=== PATIENT | female | born 1990 | race Caucasian/White ===

== ENCOUNTER → 2021-07-04 13:58 | Outpatient (CLI) | payer OTHER, SELFPAY ==
[2021-07-04 16:01] LABS: Urine N gonorrhoeae NOT DETECTED
[2021-07-04 16:42] LABS: Urine Chlamydia NOT DETECTED
== END ==
PROVIDERS: Visit Provider Obstetrics & Gynecology
DX: Z34.01 Encounter for supervision of normal first pregnancy, first trimester (principal)
CPT/HCPCS: 87491; 87591

== ENCOUNTER → 2021-07-15 12:19 | Outpatient (CLI) | payer OTHER, SELFPAY ==
[2021-07-15 13:21] LABS: Add Manual Diff / Slide Review NO; Basophils Absolute Auto 0 /uL (0-100); Basophils Percent Auto 0.4 % (0-2); Eosinophils Absolute Auto 100 /uL (0-450); Eosinophils Percent Auto 1.1 % (2-4); Hematocrit 35.3 % (36-46); Hemoglobin 12.5 g/dL (12.0-16.0); Lymphocytes Absolute Auto 2400 /uL (1100-4500); Lymphocytes Percent Auto 27.2 % (25-40); Mean Corpuscular HGB Conc 35.3 % (30-36); Mean Corpuscular Hemoglobin 30.2 PG (26-34); Mean Corpuscular Volume 85.6 fL (80-100); Monocytes Absolute Auto 700 /uL (0-900); Monocytes Percent Auto 7.5 % (3-14); Neutrophils Absolute Auto 5700 /uL (1500-7000); Neutrophils Percent Auto 63.8 % (50-75); Platelet Count 179 X10^3/uL (150-400); Red Blood Cell Count 4.12 X10^6/uL (4.0-5.2); Red Cell Distribution Width 12.5 % (11.6-14.8)
[2021-07-15 19:10] LABS: HIV 1 & 2 Ab/Ag 4th Gen Combo NEGATIVE (NEGATIVE); Hep C Virus Ab w/Reflex Quant NEGATIVE s/c (NEGATIVE); Rubella Antibody IgG 51.1 IU/mL (>15)
[2021-07-15 19:21] LABS: Hepatitis B Surface Antigen NEGATIVE s/c (NEGATIVE)
[2021-07-16 08:16] LABS: RPR Screen Non Reactive (Non Reactive)
[2021-07-19 17:09] LABS: Varicella IgG Antibody 2241 index (Immune >165)
== END ==
PROVIDERS: PCP Obstetrics & Gynecology; Referring Provider Obstetrics & Gynecology; Visit Provider Obstetrics & Gynecology
DX: Z34.81 Encounter for supervision of other normal pregnancy, first trimester (principal)
CPT/HCPCS: 36415; 80055; 86787; 86803; 86850; 86900; 86901; 87389

== ENCOUNTER → 2021-08-30 08:44 | Outpatient (CLI) | payer OTHER, SELFPAY ==
[2021-09-02 01:14] LABS: AFP Value 36.3 ng/mL (.); Gest Age on Col Date 16.7 weeks (.); Insulin Dep Diabetes No (.); OSBR Risk 1IN 10000 (.); Results Report (.); Test Results *Screen Negative* (.)
== END ==
PROVIDERS: Referring Provider Obstetrics & Gynecology; Visit Provider Obstetrics & Gynecology
DX: Z34.90 Encounter for supervision of normal pregnancy, unspecified, unspecified trimester (principal)
CPT/HCPCS: 36415; 82105

== ENCOUNTER → 2021-09-21 11:58 | Outpatient (CLI) | payer OTHER, SELFPAY ==
--- NOTE | 2021-09-21 12:00 | DI.US.S_ITS ---
PROCEDURE: US OB >= 14 WEEKS FETUS INDICATIONS: antomy scan OUTSIDE/PRIOR DATING DATA: Last menstrual period (LMP): 05/05/2021. LMP-based estimated date of delivery (YONAS): 02/09/2022. First dating scan (date and location): Outside study dated 07/04/2021 Estimated date of delivery (YONAS) from first dating scan: 02/06/2022. The calculations are made using the working YONAS of 02/09/2022 TECHNIQUE: Real-time scanning was performed of the fetus, with image documentation and biometric measurements. Endovaginal scanning: Not performed COMPARISON: [facility], , OB <= 14 WEEKS FETUS, 07/04/2021, 14:38. FINDINGS: General: A single living intrauterine gestation is present. Presentation: Cephalic. Placenta: Placental position is posterior , without previa. Amniotic fluid index: 12.8 cm, normal range is 5-24 cm. Single deepest vertical pocket is 4.1 cm. heart rate: 157 beats per minute. Maternal cervical canal: 3.6 cm long. Normal lower limit is 2.5 cm. biometrics: Biparietal diameter: 4.7 cm, 20 weeks 1 day Head circumference: 17.5 cm, 20 weeks 0 days Abdominal circumference: 15.0 cm, 20 weeks 1 day Femur length: 3.4 cm, 20 weeks 4 days Clinically estimated gestational age: 19 weeks 6 days Composite gestational age from present scan: 20 weeks 2 days Estimated weight and percentile: 347 g, 73rd percentile Anatomic survey: Neuro: Ventricles are non-dilated at less than 10 mm. Cisterna magna is normal at 3-11 mm. Cerebellum is normal in size and morphology. Nuchal skin fold: Normal at less than 6 mm between 14-21 weeks gestational age. Face: Nose and lips, facial profile are normal. Spine: No evidence for spina bifida. Heart: 4-chambered heart is present, with normal ventricular outflow tracts. Diaphragm: Diaphragm is intact. Stomach: Left-sided stomach is present. Kidneys: No hydronephrosis. Normal is less than 5 mm in 2nd trimester, less than 7 mm in 3rd trimester. Cord: 3-vessel cord has orthotopic insertion. Bladder: Normal in size. Extremities: All 4 extremities identified. IMPRESSION: 1. Living 2nd trimester intrauterine . Current ultrasound age is 3 days greater than the previously a stab left clinical age. 2. Normal anatomy study. We strive to produce accurate, complete, and clear reports of imaging services. To assist us in improving patient care, this report was composed using standard report templates and voice recognition software. Therefore, it may contain abnormal punctuation, insertions and/or omissions. Occasional wrong-word or sound-alike substitutions may occur. Though we review the report and make efforts to correct it, we do recommend that the report be read carefully in proper context to recognize any text inaccuracies. Dictated by: Osmar Huff M.D. on 09/21/2021 at 17:13 Approved by: Osmar Huff M.D. on 09/21/2021 at 17:22
== END ==
PROVIDERS: Referring Provider Obstetrics & Gynecology; Visit Provider Obstetrics & Gynecology
DX: Z34.92 Encounter for supervision of normal pregnancy, unspecified, second trimester (principal); Z3A.20 20 weeks gestation of pregnancy
CPT/HCPCS: 76811

== ENCOUNTER → 2021-10-11 10:45 | Outpatient (CLI) | payer OTHER, SELFPAY ==
--- NOTE | 2021-10-11 10:46 | DI.US.S_ITS ---
PROCEDURE: US OB FOLLOW UP INDICATIONS: PELVIC PRESSURE; CERVICAL LENGTH OUTSIDE/PRIOR DATING DATA: Last menstrual period (LMP): May 05, 2021. LMP-based estimated date of delivery (YONAS): February 09, 2022. First dating scan (date and location): September 22, 2019. Estimated date of delivery (YONAS) from first dating scan: February 06, 2022. TECHNIQUE: Real-time scanning was performed of the fetus, with image documentation. COMPARISON: None. FINDINGS: A single living intrauterine gestation is present. Presentation: Transverse, head to right Placenta: Placental position is posterior, without previa. Amniotic fluid index: 15 cm, normal range is 5-24 cm. Single deepest vertical pocket is 5.0 cm. heart rate: 153 beats per minute. Maternal cervical canal: 3.3 cm long. Normal lower limit is 2.5 cm. Estimated gestational age from initial scan: 23 weeks, 1 day. IMPRESSION: 1. Single live intrauterine gestation. Maternal cervical canal is 3.3 cm long. Normal JEFFREY. Dictated by: Candice Flores M.D. on 10/11/2021 at 13:32 Approved by: Candice Flores M.D. on 10/11/2021 at 13:34
== END ==
PROVIDERS: Referring Provider Obstetrics & Gynecology; Visit Provider Obstetrics & Gynecology
DX: O26.892 Other specified pregnancy related conditions, second trimester; R10.2 Pelvic and perineal pain; Z36.86 Encounter for antenatal screening for cervical length; Z3A.23 23 weeks gestation of pregnancy
CPT/HCPCS: 76816

== ENCOUNTER → 2021-10-26 12:26 | Outpatient (CLI) | payer OTHER, SELFPAY | PROVIDERS: Visit Provider Obstetrics & Gynecology | DX: Z34.02 Encounter for supervision of normal first pregnancy, second trimester (principal); Z3A.24 24 weeks gestation of pregnancy | CPT/HCPCS: 87077; 87086; 87186 ==

== ENCOUNTER → 2021-11-04 08:26 | Outpatient (CLI) | payer OTHER, SELFPAY ==
[2021-11-04 10:07] LABS: Hematocrit 32.6 % (36-46); Hemoglobin 11.6 g/dL (12.0-16.0)
[2021-11-04 10:17] LABS: GTT (PREG) 1 Hour PP 50gm Dose 98 mg/dL (76-139)
== END ==
PROVIDERS: Referring Provider Obstetrics & Gynecology; Visit Provider Obstetrics & Gynecology
DX: Z34.02 Encounter for supervision of normal first pregnancy, second trimester (principal); Z3A.26 26 weeks gestation of pregnancy
CPT/HCPCS: 36415; 82950; 85014; 85018

== ENCOUNTER → 2021-11-23 11:30 | Outpatient (CLI) | payer OTHER, SELFPAY | PROVIDERS: Visit Provider Obstetrics & Gynecology | DX: Z34.03 Encounter for supervision of normal first pregnancy, third trimester (principal); N39.0 Urinary tract infection, site not specified; B96.20 Unspecified Escherichia coli [E. coli] as the cause of diseases classified elsewhere; Z3A.28 28 weeks gestation of pregnancy | CPT/HCPCS: 87086 ==

== ENCOUNTER → 2022-01-17 15:52 | Outpatient (CLI) | payer OTHER, SELFPAY ==
[2022-01-18 16:17] LABS: Strep Grp B PCR NEG for Grp B Strep
== END ==
PROVIDERS: Visit Provider Obstetrics & Gynecology
DX: Z34.03 Encounter for supervision of normal first pregnancy, third trimester (principal); Z3A.36 36 weeks gestation of pregnancy
CPT/HCPCS: 87653

== ENCOUNTER 2022-01-31 00:09 | Inpatient (IN) | payer OTHER, SELFPAY ==
--- NOTE | 2022-01-31 00:28 | P.HPOB_ITS ---
OB HPI Date/Time Date of admission: 01/31/22 Date Patient Seen: 01/31/22 Time Patient Seen: 00:28 History of Present Condition Chief complaint: LABOR YONAS Calculator Estimated Delivery Date Method Current WG Current Estimate 02/09/22 LMP (Certain) 38w 5d Other Estimates 02/06/22 Ultrasound #1 39w 1d Estimated Gestational Age (weeks): 38.5 : 1 Para: 0 Narrative: 31YO @ 38wks 5days by LMP here for evaluation of ROM. Large gush of clear fluid at 2311. Continuing to leak fluid and now beginning to have contractions. No vaginal bleeding. +FM. Uncomplicated care with . Planning an unmedicated . care: good care, initiated at week # (8), number of visits (10) and pounds weight gain (25) Dating criteria OB: LMP confirmed by 1st trimester US Ultrasounds: normal mid trimester US Obstetrical complications: none Medical complications OB: none Preadmission Labs Last OB Lab Results: Blood Type O Positive 07/15/21 12:34 Antibody Screen Negative 07/15/21 12:34 Hematocrit 40.9 % (36-46) 01/31/22 00:45 Hemoglobin 13.9 g/dL (12.0-16.0) 01/31/22 00:45 Hepatitis B Surface Antigen Negative s/c (NEGATIVE) 07/15/21 12 :34 Hepatitis C Antibody Negative s/c (NEGATIVE) 07/15/21 12:34 Rubella Antibody 51.1 IU/mL (>15) 07/15/21 12:34 Varicella-Zoster IgG Antibody 2241 index (Immune >165) 07/15/21 12:34 Glucose 1 Hour 98 mg/dL (76-139) 11/04/21 09:52 Group B Streptococcus (PCR) Neg for grp b strep 01/17/22 15:52 Genetic Screens: Cell-free DNA: Normal and Alpha-fetoprotein: Normal Evaluation Evaluation Baseline heart rate: 140 Variability: Moderate (11-25) monitor accelerations: Present Monitor Decelerations: Absent Contraction Frequency (minutes): 5 Uterine Contraction Intensity: Mild Status: Category l Non-invasive Membranes Rupture Test: positive Comments: CE deferred for PROM PFSH Medical History Abnormal Pap smear of cervix (~2019) Anxiety Lai's palsy Human papilloma virus (~2020) Irritable bowel syndrome Kidney stones (~2017) Family History Mother Cervical cancer Hypertension Colitis Grandfather Cancer Brain cancer Grandmother Cancer Diabetes mellitus Hypertension Breast cancer Social History marital status: unmarried,living together (engaged, getting in September) number of children: 0 household members: significant other lives independently: Yes housing: house pets and animals: Yes (2 dogs) education level: college (some college) occupational status: employed 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.) special jocelyne needs: No travel history: over 6 months ago seatbelt use: always water heater temp set < 120 deg: Yes working smoke detector in home: Yes fire extinguisher in home: No (Will get one) carbon monox detector in home: Yes firearms in home: Yes do you feel safe at home: Yes Smoking Status: Never smoker Tobacco: How many years used: 15 second hand exposure: No alcohol intake: former substance use type: does not use during the past year weight has: remained stable well-balanced diet: daily or most days daily servings fruits/ve-4 caffeine: Yes Type(s) of exercise: walking Meds Home Medications and Allergies Home Medications Medication Instructions Recorded Confirmed Type prenat.vits,deisy,akb-vpqj-vgkuo 1 tab PO DAILY 06/29/21 01/24/22 History cyclobenzaprine 5 mg tablet 5 mg PO TID PRN muscle spasm #20 09/02/21 01/24/22 Rx tabs double electric breast pump 1 ea topical .prn #1 ea 11/01/21 01/24/22 Rx Allergies Allergy/AdvReac Type Severity Reaction Status Date / Time No Known Allergies Allergy Verified 01/24/22 11:24 Review of Systems Review of Systems ROS: Yes All systems reviewed with the patient and are negative except as otherw ise documented and unobtainable due to mental status OB Exam Resp Effort & Inspection: normal respiratory effort and able to speak in complete sentences Auscultation: clear to auscultation bilaterally Cardio Rate: regular rate Rhythm: regular rhythm Presentation: vertex Objective Labs Result Diagrams: 01/31/22 00:45 Assessment and Plan Assessment and Plan Assessment and Plan narrative: A: Term [place] PROM x2 hours without sx of infection No indication for GBS prophylaxis Cat I FHR P: Admit, routine orders. Expectant management of labor. Reassess in 4 hours or sooner, PRN.
[2022-01-31 01:11] LABS: Add Manual Diff / Slide Review NO; Basophils Absolute Auto 0 /uL (0-100); Basophils Percent Auto 0.3 % (0-2); Eosinophils Absolute Auto 0 /uL (0-450); Eosinophils Percent Auto 0.4 % (2-4); Hematocrit 40.9 % (36-46); Hemoglobin 13.9 g/dL (12.0-16.0); Lymphocytes Absolute Auto 1900 /uL (1100-4500); Lymphocytes Percent Auto 17.9 % (25-40); Mean Corpuscular Hemoglobin 29.9 PG (26-34); Monocytes Absolute Auto 1000 /uL (0-900); Monocytes Percent Auto 9.8 % (3-14); Neutrophils Absolute Auto 7500 /uL (1500-7000); Neutrophils Percent Auto 71.6 % (50-75); Platelet Count 158 X10^3/uL (150-400); Red Blood Cell Count 4.65 X10^6/uL (4.0-5.2); Red Cell Distribution Width 13.2 % (11.6-14.8); White Blood Cell Count 10.5 X10^3/uL (4.5-11.0)
[2022-01-31 01:15] VITALS: BP 136/79
[2022-01-31 01:40] LABS: COVID19 -Nasal RAPID Negative (Negative)
--- NOTE | 2022-01-31 07:44 | PM.OBPNLAB ---
Date/Time Date Patient Seen: 01/31/22 Time Patient Seen: 07:45 Pain Control Pain control: tolerating well Comments: Desires unmedicated childbirth, aware of all options for pain relief. Pelvic Exam Dilation (cm): 5 Effacement (%): 80 station: -1 Amniotic membrane status: Ruptured Comments: Clear fluid Contractions Contractions on admission: irregular Monitor mode: External Contraction pattern: Irregular Contraction phase: Resting Contraction intensity: Mild Status status: Category l Heart Rate Baseline: 145 Monitor Accelerations: Present Monitor Decelerations: Early Monitor Variability: Moderate Assessment and Plan Assessment: active labor Plan: continuous present management Comments: Anticipate
[2022-01-31] MEDS: GENTAMICIN 310 MG in SODIUM CHLORIDE 0.9% 100 ML 107.75 MG IV (14:45)
[2022-01-31 15:58] VITALS: TEMP 37.7
[2022-01-31] MEDS: ACETAMINOPHEN 325 MG TABLET 975 MG PO (15:58)
--- NOTE | 2022-01-31 17:13 | PM.OBPRVD ---
Labor & Delivery Delivery date: 01/31/22 Intrapartal Events: Extended Tachycardia and Chorioamnionitis (Temperature elevation x 1; IV Ampicillin + Gentamyin x 1 dose pre-delivery) Cervical ripening method: none Induction method: none Delivery monitor: external uterine Route of delivery: vacuum extraction Indication for instrumentation: nonreassuring FHR tracing Episiotomy description: None L&D Laceration Description: Periurethral - 1st Degree (Left sided) and Perineal - 2nd Degree Delivery repair: chromic Estimated blood loss (mL): 200 Anesthesia Type: Epidural and Local (20 cc 1% plain lidocaine) Complications: None Narrative: Immediately prior to entering the 2nd stage, patient was noted to have elevation of her temperature to 100.5 and this was associated with both maternal and tachycardia. A single dose of ampicillin 2 g and gentamicin 5 milligrams/kilos x1 dose administered IV along with p.o. Tylenol. Following a 2nd stage lasting approximately 90 minutes, patient was pushing vigorously but infant had tachycardia with loss of variability between contractions and the decision was made to facilitate delivery with vacuum extraction from +2 station. Kiwi OmniCup was applied at +2 station direct OA and following min initial malfunction of the original vacuum extractor, the was delivered easily with a single pull and no pop offs. The infant was brought down to the perineum mother was allowed to push over intact perineum a viable female infant delivered with no shoulder dystocia or cord entanglement. Skin to skin contact was immediately initiated following delivery and delayed cord clamping was performed. Once the umbilical cord was doubly clamped and cut, a cord blood sample was obtained for routine studies. The placenta was delivered then with gentle cord traction and found to be intact with a central insertion and 3 cord vessels. Intravenous Pitocin was administered immediately with an estimated blood loss about 200 cc. Perineum inspected with the findings as noted above and the second-degree midline laceration was closed with 2-0 chromic in the usual manner after infiltration of the tissues with 20 cc of 1% plain lidocaine. Delivery process was then terminated with the mother and infant having tolerated the procedure well. [place] Baby 1: Infant gender: Female Presentation: vertex Position: Left Occiput Anterior Placenta delivery description: Spontaneous Cord Vessel Description: 3 Vessels score (1 min): 8 score (5 min): 9 weight: 7 lb 5.286 oz Plan for aftercare: Routine care
[2022-01-31] MEDS: IBUPROFEN 600 MG TABLET PO (22:28)
[2022-01-31] MEDS: ACETAMINOPHEN 325 MG TABLET 650 MG PO (23:37)
[2022-02-01 08:09] LABS: Add Manual Diff / Slide Review NO; Basophils Absolute Auto 0 /uL (0-100); Basophils Percent Auto 0.2 % (0-2); Eosinophils Absolute Auto 0 /uL (0-450); Eosinophils Percent Auto 0.1 % (2-4); Hematocrit 31.1 % (36-46); Hemoglobin 10.8 g/dL (12.0-16.0); Lymphocytes Absolute Auto 2100 /uL (1100-4500); Lymphocytes Percent Auto 14.8 % (25-40); Mean Corpuscular HGB Conc 34.7 % (30-36); Mean Corpuscular Hemoglobin 30.3 PG (26-34); Mean Corpuscular Volume 87.3 fL (80-100); Monocytes Absolute Auto 1100 /uL (0-900); Monocytes Percent Auto 8.1 % (3-14); Neutrophils Absolute Auto 10600 /uL (1500-7000); Neutrophils Percent Auto 76.8 % (50-75); Platelet Count 127 X10^3/uL (150-400); Red Blood Cell Count 3.56 X10^6/uL (4.0-5.2); Red Cell Distribution Width 13.3 % (11.6-14.8); White Blood Cell Count 13.9 X10^3/uL (4.5-11.0)
[2022-02-01] MEDS: ACETAMINOPHEN 325 MG TABLET 650 MG PO ×2 (09:06→15:12)
[2022-02-01] MEDS: IBUPROFEN 600 MG TABLET PO ×2 (09:06→15:12)
--- NOTE | 2022-02-01 12:49 | PM.OBDS.1 ---
Discharge Providers Provider Date of admission: 01/31/22 00:09 Discharge Date: 02/01/22 Primary care physician: Cindy VENTURA Provider Consults: 02/01/22 17:07 Consult to Line Construction Supervisor Routine Comment: Discharge provider: Refugio Taylor MD Summary Hospital Course Date Patient Seen: 02/01/22 Time Patient Seen: 12:50 Diagnoses: Intrauterine gestation, 38+5 weeks EGA, delivered via vaginal Hospital Course: Cheri is a 31YO primigravida admitted at 38+5 for spontaneous ROM late on the night of 01/30/2022. She was admitted early on the morning of 01/31/2022 in labored spontaneously. Her original plan was an unmedicated but she ultimately decided to have an epidural placed which provided tremendous relief for and early on the evening of 01/31/2022 she delivered by vacuum extraction to the perineum due to tachycardia and decelerations with pushing. Patient had spiked a single temperature elevation prior to delivery and received a single dose of ampicillin and gentamicin IV. Her infant is a viable female with Apgars of 8 and 9 and weight of 3325 g (7 lb 5.3 oz). She sustained a second-degree perineal laceration which was repaired in the usual manner and following delivery both mother and baby have done extremely well. Mother has remained afebrile and normotensive throughout her course, she is ambulating independently, tolerating regular diet, her pain is well relieved with oral pain medications, and she has experienced prompt return of bowel and bladder function. She will be discharged at this time in an afebrile normotensive condition to home after counseling regarding precautionary symptoms, limitations of activity, medications, and plans for follow-up which will be in 6 weeks. Medication at the time of discharge will include resumption of all preadmission medications along with oxycodone 5 mg tabs every 4-6 hours as needed pain, #6, ibuprofen 600 mg p.o. q.6 hours as needed pain, and norethindrone acetate 0.35 mg p.o. daily (Micronor) for contraception. Peripartum Data Infant Delivery Method: Assisted Delivery (Vacuum extraction to perineum with spontaneous delivery over intact perineum) Laceration Description: Periurethral - 1st Degree (Left) and Perineal - 2nd Degree (Repaired) Episiotomy description: None complications: none 1: Gender: Female Disposition of : home Status at Discharge Cognitive/behavioral status at discharge: oriented and at baseline, oriented Functional status at discharge: independent ambulation Overall status at discharge: patient is progressing back to baseline Time Spent with Patient Time attestation: Total time spent providing and/or coordinating discharge services: Time spent: Less than 30 minutes Objective Labs Result Diagrams: 02/01/22 07:43 Labs: Laboratory Results - last 24 hr 02/01/22 07:43 WBC 13.9 H RBC 3.56 L Hgb 10.8 L Hct 31.1 L MCV 87.3 MCH 30.3 MCHC 34.7 RDW 13.3 Plt Count 127 L Neut % (Auto) 76.8 H Lymph % (Auto) 14.8 L [place] % (Auto) 8.1 Eos % (Auto) 0.1 L Baso % (Auto) 0.2 Neut # (Auto) 77641 H Lymph # (Auto) 2100 [place] # (Auto) 1100 H Eos # (Auto) 0 Baso # (Auto) 0 Exam Const General: cooperative and comfortable Nutritional Appearance: average body habitus Orientation: alert and oriented x3 HENMT Head: normal to inspection, atraumatic and abrasion Ears: hearing grossly normal bilaterally Face and sinus: face symmetric Eyes General: appearance normal, both eyes and all related structures Conjunctivae: conjunctivae normal Sclera: sclerae normal EOM: EOM intact bilaterally Neck Neck: normal visual inspection Resp Effort & Inspection: normal respiratory effort and able to speak in complete sentences Auscultation: clear to auscultation bilaterally Cardio Rate: regular rate Rhythm: regular rhythm Heart Sounds: S1 normal, S2 normal and no murmurs GI Inspection: normal to inspection Palpation: soft, no hepatosplenomegaly, mass (Minimally tender, firm fundus at U -4) and tender (Minimal, diffuse) External Female Exam: other (No significant bleeding noted) Extrem General: no calf tenderness Psych Appearance: grossly normal Mental Status: mental status grossly normal Speech and Movement: speech and movement normal Mood: congruent mood Affect: normal affect Attitude: cooperative Thought Process: normal Thought Content: normal Judgment: judgment good Discharge Plan Discharge Plan Patient Disposition: Home Provider Discharge Comment: Please review the written instructions you received when you were discharged from the hospital. Your follow-up appointment will be scheduled for 6 weeks following the delivery and I look forward to seeing you then. If however you have any issues, concerns, or problems in the meanwhile, please contact me either through the office phone at [phone] or via the patient portal. Discharge orders & Medications Prescriptions: New ibuprofen 600 mg Tablet 600 mg PO Q6HR PRN (Reason: Pain, Mild (1-3)) Qty: 60 2RF oxycodone 5 mg Tablet 5 mg PO Q4HR PRN (Reason: Pain, Moderate (4-6)) 2 Days Qty: 6 0RF norethindrone (contraceptive) 0.35 mg tablet 0.35 mg PO DAILY Qty: 84 6RF Continued cyclobenzaprine 5 mg tablet 5 mg PO TID PRN (Reason: muscle spasm) Qty: 20 0RF Rx Instructions: Take as often as three times a day. double electric breast pump 1 ea topical .prn Qty: 1 0RF Rx Instructions: With supplies prenat.vits,deisy,[id number] Tablet 1 tab PO DAILY Follow up/Referrals: ProviderCindy [Primary Care Provider] - Discharge Health Status Multidrug resistant organism: No MDRO Diet/Activity/Treatments Diet: Diet as Tolerated Activity: As tolerated Skin/Wound/Dressing Care Report to your healthcare provider any signs of infection, such as:: chills, fever, increased pain, unusual drainage and unusual redness Dressing: N/A Visit Report/Discharge Packet Instructions: DI for Labor and Delivery, Vaginal , DI for and Nipple Soreness, DI for Prescription Opioid Use Stand Alone Forms: Discharge: Care Discharge Data Primary Care Provider: Cindy Soliz
[2022-02-01 19:43] VITALS: BP 107/73; PULSE 80; RESP 18; TEMP 36.4
== END 2022-02-01 18:55 | disposition home or self-care (01) | DRG 805 ==
PROVIDERS: Obstetrics & Gynecology; Admitting Provider Nurse Practitioner Obstetrics & Gynecology; Referring Provider Nurse Practitioner Obstetrics & Gynecology; Visit Provider Nurse Practitioner Obstetrics & Gynecology
DX: O42.02 Full-term premature rupture of membranes, onset of labor within 24 hours of rupture (principal); O41.1230 Chorioamnionitis, third trimester, not applicable or unspecified; Z37.0 Single live birth; O76 Abnormality in fetal heart rate and rhythm complicating labor and delivery; Z3A.38 38 weeks gestation of pregnancy; O70.1 Second degree perineal laceration during delivery; O71.82 Other specified trauma to perineum and vulva; Z20.822 Contact with and (suspected) exposure to COVID-19
CPT/HCPCS: 36415; 59050; 59400; 85025; 86850; 86900; 86901; 87635; C9803; G0379

== ENCOUNTER → 2022-03-14 15:03 | Outpatient (CLI) | payer OTHER, SELFPAY ==
[2022-03-16 18:11] LABS: Candida species Negative (Negative); Gardnerella vaginalis Negative (Negative); Trichomoas vaginalis Negative (Negative)
== END ==
PROVIDERS: Visit Provider Physician Assistant Medical
DX: N89.8 Other specified noninflammatory disorders of vagina (principal)
CPT/HCPCS: 87480; 87510; 87660